=== PATIENT | female | born 1990 | race Caucasian/White ===

== ENCOUNTER → 2020-07-25 13:28 | Outpatient (CLI) | payer OTHER, SELFPAY ==
[2020-07-25 15:09] LABS: Benzodiazepines Screen,Urine Negative ng/ml (<200)
[2020-07-25 15:10] LABS: Amphetamine/Metha Screen,Urine Negative ng/ml (<1000)
[2020-07-25 15:11] LABS: Barbiturates Screen,Urine Negative ng/ml (<200); Cannabinoid Screen,Urine Negative ng/ml (<50)
[2020-07-25 15:12] LABS: Cocaine Screen,Urine Negative ng/ml (<300); Methadone Screen,Urine Negative ng/ml (<300)
[2020-07-25 15:13] LABS: Opiate Screen,Urine Negative ng/ml (<300)
[2020-07-25 15:14] LABS: Phencyclidine Screen,Urine Negative ng/ml (<25)
== END ==
PROVIDERS: Visit Provider Physician Assistant Medical
DX: F11.20 Opioid dependence, uncomplicated (principal)
CPT/HCPCS: 80305

== ENCOUNTER → 2020-08-02 11:30 | Outpatient (CLI) | payer OTHER, SELFPAY ==
[2020-08-02 14:34] LABS: Amphetamine/Metha Screen,Urine Negative ng/ml (<1000); Barbiturates Screen,Urine Negative ng/ml (<200)
[2020-08-02 14:35] LABS: Benzodiazepines Screen,Urine Negative ng/ml (<200)
[2020-08-02 14:36] LABS: Cannabinoid Screen,Urine Negative ng/ml (<50); Cocaine Screen,Urine Negative ng/ml (<300)
[2020-08-02 14:37] LABS: Methadone Screen,Urine Negative ng/ml (<300); Opiate Screen,Urine Negative ng/ml (<300)
[2020-08-02 14:38] LABS: Phencyclidine Screen,Urine Negative ng/ml (<25)
== END ==
PROVIDERS: Visit Provider Physician Assistant Medical
DX: F11.20 Opioid dependence, uncomplicated (principal)
CPT/HCPCS: 80305

== ENCOUNTER → 2020-08-10 09:58 | Outpatient (CLI) | payer OTHER, SELFPAY ==
[2020-08-10 11:31] LABS: Amphetamine/Metha Screen,Urine Negative ng/ml (<1000)
[2020-08-10 11:32] LABS: Barbiturates Screen,Urine Negative ng/ml (<200)
[2020-08-10 11:33] LABS: Benzodiazepines Screen,Urine Negative ng/ml (<200)
[2020-08-10 11:35] LABS: Cannabinoid Screen,Urine Negative ng/ml (<50); Cocaine Screen,Urine Negative ng/ml (<300)
[2020-08-10 11:36] LABS: Methadone Screen,Urine Negative ng/ml (<300)
[2020-08-10 11:37] LABS: Opiate Screen,Urine Negative ng/ml (<300)
[2020-08-10 11:48] LABS: Phencyclidine Screen,Urine Negative ng/ml (<25)
== END ==
PROVIDERS: Visit Provider Physician Assistant Medical
DX: F11.20 Opioid dependence, uncomplicated (principal)
CPT/HCPCS: 80305

== ENCOUNTER → 2020-08-18 11:24 | Outpatient (CLI) | payer OTHER, SELFPAY ==
[2020-08-18 12:10] LABS: Amphetamine/Metha Screen,Urine Negative ng/ml (<1000); Benzodiazepines Screen,Urine Negative ng/ml (<200)
[2020-08-18 12:11] LABS: Barbiturates Screen,Urine Negative ng/ml (<200)
[2020-08-18 12:12] LABS: Cannabinoid Screen,Urine Negative ng/ml (<50); Cocaine Screen,Urine Negative ng/ml (<300)
[2020-08-18 12:13] LABS: Methadone Screen,Urine Negative ng/ml (<300)
[2020-08-18 12:14] LABS: Opiate Screen,Urine Negative ng/ml (<300); Phencyclidine Screen,Urine Negative ng/ml (<25)
== END ==
PROVIDERS: Visit Provider Physician Assistant Medical
DX: F11.20 Opioid dependence, uncomplicated (principal)
CPT/HCPCS: 80305

== ENCOUNTER → 2020-08-24 17:28 | Outpatient (CLI) | payer OTHER, SELFPAY ==
[2020-08-24 18:03] LABS: Barbiturates Screen,Urine Negative ng/ml (<200)
[2020-08-24 18:04] LABS: Amphetamine/Metha Screen,Urine Negative ng/ml (<1000); Benzodiazepines Screen,Urine Negative ng/ml (<200)
[2020-08-24 18:05] LABS: Cannabinoid Screen,Urine Negative ng/ml (<50); Cocaine Screen,Urine Negative ng/ml (<300)
[2020-08-24 18:06] LABS: Methadone Screen,Urine Negative ng/ml (<300)
[2020-08-24 18:07] LABS: Opiate Screen,Urine Negative ng/ml (<300); Phencyclidine Screen,Urine Negative ng/ml (<25)
== END ==
PROVIDERS: Visit Provider Physician Assistant Medical
DX: F11.20 Opioid dependence, uncomplicated (principal)
CPT/HCPCS: 80305

== ENCOUNTER → 2020-09-08 12:26 | Outpatient (CLI) | payer OTHER, SELFPAY ==
[2020-09-08 14:57] LABS: Amphetamine/Metha Screen,Urine Negative ng/ml (<1000)
[2020-09-08 14:58] LABS: Barbiturates Screen,Urine Negative ng/ml (<200)
[2020-09-08 14:59] LABS: Benzodiazepines Screen,Urine Negative ng/ml (<200)
[2020-09-08 15:00] LABS: Cannabinoid Screen,Urine Negative ng/ml (<50); Cocaine Screen,Urine Negative ng/ml (<300)
[2020-09-08 15:01] LABS: Methadone Screen,Urine Negative ng/ml (<300)
[2020-09-08 15:02] LABS: Opiate Screen,Urine Negative ng/ml (<300)
[2020-09-08 15:03] LABS: Phencyclidine Screen,Urine Negative ng/ml (<25)
== END ==
PROVIDERS: Visit Provider Physician Assistant Medical
DX: F11.20 Opioid dependence, uncomplicated (principal)
CPT/HCPCS: 80305

== ENCOUNTER → 2020-09-18 11:28 | Outpatient (CLI) | payer OTHER, SELFPAY ==
[2020-09-18 12:50] LABS: Barbiturates Screen,Urine Negative ng/ml (<200); Benzodiazepines Screen,Urine Negative ng/ml (<200)
[2020-09-18 12:51] LABS: Amphetamine/Metha Screen,Urine Negative ng/ml (<1000)
[2020-09-18 12:52] LABS: Methadone Screen,Urine Negative ng/ml (<300)
[2020-09-18 12:53] LABS: Cannabinoid Screen,Urine Negative ng/ml (<50); Opiate Screen,Urine Negative ng/ml (<300)
[2020-09-18 12:54] LABS: Phencyclidine Screen,Urine Negative ng/ml (<25)
[2020-09-18 13:03] LABS: Cocaine Screen,Urine Negative ng/ml (<300)
== END ==
PROVIDERS: Visit Provider Physician Assistant Medical
DX: F11.20 Opioid dependence, uncomplicated (principal)
CPT/HCPCS: 80305

== ENCOUNTER → 2020-09-27 11:02 | Outpatient (CLI) | payer OTHER, SELFPAY ==
[2020-09-27 13:32] LABS: Amphetamine/Metha Screen,Urine Negative ng/ml (<1000)
[2020-09-27 13:33] LABS: Barbiturates Screen,Urine Negative ng/ml (<200)
[2020-09-27 13:34] LABS: Benzodiazepines Screen,Urine Negative ng/ml (<200); Cannabinoid Screen,Urine Negative ng/ml (<50)
[2020-09-27 13:35] LABS: Cocaine Screen,Urine Negative ng/ml (<300)
[2020-09-27 13:36] LABS: Methadone Screen,Urine Negative ng/ml (<300); Opiate Screen,Urine Negative ng/ml (<300)
[2020-09-27 13:37] LABS: Phencyclidine Screen,Urine Negative ng/ml (<25)
[2020-10-02 19:05] LABS: Opiates Negative (Cutoff=100)
== END ==
PROVIDERS: Visit Provider Physician Assistant Medical
DX: F11.20 Opioid dependence, uncomplicated (principal)
CPT/HCPCS: 80305; 80361; 80365; G0480

== ENCOUNTER → 2020-10-13 16:11 | Outpatient (CLI) | payer OTHER, SELFPAY ==
[2020-10-13 17:05] LABS: Opiate Screen,Urine Negative ng/ml (<300)
[2020-10-13 17:06] LABS: Phencyclidine Screen,Urine Negative ng/ml (<25)
[2020-10-13 17:08] LABS: Amphetamine/Metha Screen,Urine Negative ng/ml (<1000); Barbiturates Screen,Urine Negative ng/ml (<200)
[2020-10-13 17:09] LABS: Benzodiazepines Screen,Urine Negative ng/ml (<200)
[2020-10-13 17:11] LABS: Cannabinoid Screen,Urine Negative ng/ml (<50)
[2020-10-13 17:12] LABS: Cocaine Screen,Urine Negative ng/ml (<300); Methadone Screen,Urine Negative ng/ml (<300)
== END ==
PROVIDERS: Visit Provider Physician Assistant Medical
DX: F11.20 Opioid dependence, uncomplicated (principal)
CPT/HCPCS: 80305

== ENCOUNTER → 2020-10-25 14:39 | Outpatient (CLI) | payer OTHER, SELFPAY ==
[2020-10-25 15:19] LABS: Barbiturates Screen,Urine Negative ng/ml (<200); Benzodiazepines Screen,Urine Negative ng/ml (<200)
[2020-10-25 15:20] LABS: Amphetamine/Metha Screen,Urine Negative ng/ml (<1000)
[2020-10-25 15:21] LABS: Cannabinoid Screen,Urine Negative ng/ml (<50); Cocaine Screen,Urine Negative ng/ml (<300)
[2020-10-25 15:22] LABS: Methadone Screen,Urine Negative ng/ml (<300)
[2020-10-25 15:23] LABS: Opiate Screen,Urine Negative ng/ml (<300); Phencyclidine Screen,Urine Negative ng/ml (<25)
== END ==
PROVIDERS: Visit Provider Physician Assistant Medical
DX: F11.20 Opioid dependence, uncomplicated (principal)
CPT/HCPCS: 80305

== ENCOUNTER → 2020-11-07 17:28 | Outpatient (CLI) | payer OTHER, SELFPAY ==
[2020-11-07 18:36] LABS: Barbiturates Screen,Urine Negative ng/ml (<200)
[2020-11-07 18:37] LABS: Amphetamine/Metha Screen,Urine Negative ng/ml (<1000); Benzodiazepines Screen,Urine Negative ng/ml (<200)
[2020-11-07 18:38] LABS: Methadone Screen,Urine Negative ng/ml (<300)
[2020-11-07 18:39] LABS: Cannabinoid Screen,Urine Negative ng/ml (<50); Cocaine Screen,Urine Negative ng/ml (<300)
[2020-11-07 18:40] LABS: Opiate Screen,Urine Negative ng/ml (<300)
[2020-11-07 18:41] LABS: Phencyclidine Screen,Urine Negative ng/ml (<25)
== END ==
PROVIDERS: Visit Provider Physician Assistant Medical
DX: F11.20 Opioid dependence, uncomplicated (principal)
CPT/HCPCS: 80305

== ENCOUNTER → 2020-12-09 12:29 | Outpatient (CLI) | payer OTHER, SELFPAY ==
[2020-12-09 13:37] LABS: Barbiturates Screen,Urine Negative ng/ml (<200)
[2020-12-09 13:38] LABS: Amphetamine/Metha Screen,Urine Negative ng/ml (<1000); Benzodiazepines Screen,Urine Negative ng/ml (<200)
[2020-12-09 13:39] LABS: Cannabinoid Screen,Urine Positive ng/ml (<50); Cocaine Screen,Urine Negative ng/ml (<300)
[2020-12-09 13:40] LABS: Methadone Screen,Urine Negative ng/ml (<300)
[2020-12-09 13:41] LABS: Opiate Screen,Urine Negative ng/ml (<300); Phencyclidine Screen,Urine Negative ng/ml (<25)
== END ==
PROVIDERS: Visit Provider Physician Assistant Medical
DX: F11.20 Opioid dependence, uncomplicated (principal)
CPT/HCPCS: 80305

== ENCOUNTER → 2021-01-03 12:16 | Outpatient (CLI) | payer MEDICAID, SELFPAY ==
[2021-01-03 18:35] LABS: Amphetamine/Metha Screen,Urine Negative ng/ml (<1000)
[2021-01-03 18:36] LABS: Barbiturates Screen,Urine Negative ng/ml (<200); Benzodiazepines Screen,Urine Negative ng/ml (<200)
[2021-01-03 18:37] LABS: Cannabinoid Screen,Urine Negative ng/ml (<50)
[2021-01-03 18:38] LABS: Cocaine Screen,Urine Negative ng/ml (<300); Methadone Screen,Urine Negative ng/ml (<300)
[2021-01-03 18:39] LABS: Opiate Screen,Urine Negative ng/ml (<300)
[2021-01-03 18:40] LABS: Phencyclidine Screen,Urine Negative ng/ml (<25)
== END ==
PROVIDERS: Visit Provider Physician Assistant Medical
DX: F11.20 Opioid dependence, uncomplicated (principal)
CPT/HCPCS: 80305

== ENCOUNTER → 2021-01-20 11:40 | Outpatient (CLI) | payer MEDICAID, SELFPAY ==
[2021-01-20 12:53] LABS: Barbiturates Screen,Urine Negative ng/ml (<200); Benzodiazepines Screen,Urine Negative ng/ml (<200)
[2021-01-20 12:54] LABS: Amphetamine/Metha Screen,Urine Negative ng/ml (<1000); Cannabinoid Screen,Urine Negative ng/ml (<50)
[2021-01-20 12:55] LABS: Cocaine Screen,Urine Negative ng/ml (<300)
[2021-01-20 12:56] LABS: Methadone Screen,Urine Negative ng/ml (<300); Opiate Screen,Urine Negative ng/ml (<300)
[2021-01-20 12:57] LABS: Phencyclidine Screen,Urine Negative ng/ml (<25)
== END ==
PROVIDERS: Visit Provider Physician Assistant Medical
DX: F11.20 Opioid dependence, uncomplicated (principal)
CPT/HCPCS: 80305; 80348

== ENCOUNTER → 2021-02-05 11:12 | Outpatient (CLI) | payer MEDICAID, SELFPAY ==
[2021-02-05 11:50] LABS: Benzodiazepines Screen,Urine Negative ng/ml (<200)
[2021-02-05 11:51] LABS: Amphetamine/Metha Screen,Urine Negative ng/ml (<1000); Barbiturates Screen,Urine Negative ng/ml (<200)
[2021-02-05 11:52] LABS: Cannabinoid Screen,Urine Negative ng/ml (<50); Methadone Screen,Urine Negative ng/ml (<300)
[2021-02-05 11:53] LABS: Cocaine Screen,Urine Negative ng/ml (<300)
[2021-02-05 11:54] LABS: Opiate Screen,Urine Negative ng/ml (<300); Phencyclidine Screen,Urine Negative ng/ml (<25)
== END ==
PROVIDERS: Visit Provider Physician Assistant Medical
DX: F11.20 Opioid dependence, uncomplicated (principal)
CPT/HCPCS: 80305

== ENCOUNTER → 2021-02-28 16:13 | Outpatient (CLI) | payer MEDICAID, SELFPAY ==
[2021-02-28 19:26] LABS: Amphetamine/Metha Screen,Urine Negative ng/ml (<1000)
[2021-02-28 19:27] LABS: Barbiturates Screen,Urine Negative ng/ml (<200); Benzodiazepines Screen,Urine Negative ng/ml (<200)
[2021-02-28 19:28] LABS: Cannabinoid Screen,Urine Negative ng/ml (<50)
[2021-02-28 19:29] LABS: Cocaine Screen,Urine Negative ng/ml (<300); Methadone Screen,Urine Negative ng/ml (<300)
[2021-02-28 19:30] LABS: Opiate Screen,Urine Negative ng/ml (<300)
[2021-02-28 19:31] LABS: Phencyclidine Screen,Urine Negative ng/ml (<25)
== END ==
PROVIDERS: Visit Provider Physician Assistant Medical
DX: F11.20 Opioid dependence, uncomplicated (principal)
CPT/HCPCS: 80305

== ENCOUNTER → 2021-03-10 10:52 | Outpatient (CLI) | payer MEDICAID, SELFPAY ==
[2021-03-10 18:23] LABS: Amphetamine/Metha Screen,Urine Negative ng/ml (<1000); Barbiturates Screen,Urine Negative ng/ml (<200)
[2021-03-10 18:24] LABS: Benzodiazepines Screen,Urine Negative ng/ml (<200)
[2021-03-10 18:25] LABS: Cannabinoid Screen,Urine Negative ng/ml (<50); Cocaine Screen,Urine Negative ng/ml (<300)
[2021-03-10 18:26] LABS: Methadone Screen,Urine Negative ng/ml (<300)
[2021-03-10 18:27] LABS: Opiate Screen,Urine Negative ng/ml (<300); Phencyclidine Screen,Urine Negative ng/ml (<25)
== END ==
PROVIDERS: PCP Physician Assistant Medical; Visit Provider Physician Assistant Medical
DX: F11.20 Opioid dependence, uncomplicated (principal)
CPT/HCPCS: 80305

== ENCOUNTER → 2021-03-24 11:51 | Outpatient (CLI) | payer MEDICAID, SELFPAY ==
[2021-04-09 09:10] LABS: Opiates Negative (Cutoff=100)
== END ==
PROVIDERS: PCP Family Medicine; Visit Provider Family Medicine
DX: F11.20 Opioid dependence, uncomplicated (principal)
CPT/HCPCS: 80361; 80365; G0480

== ENCOUNTER → 2021-03-27 16:26 | Outpatient (CLI) | payer MEDICAID, SELFPAY ==
[2021-03-27 19:21] LABS: Amphetamine/Metha Screen,Urine Negative ng/ml (<1000)
[2021-03-27 19:22] LABS: Barbiturates Screen,Urine Negative ng/ml (<200); Benzodiazepines Screen,Urine Negative ng/ml (<200)
[2021-03-27 19:23] LABS: Cannabinoid Screen,Urine Negative ng/ml (<50)
[2021-03-27 19:24] LABS: Cocaine Screen,Urine Negative ng/ml (<300); Methadone Screen,Urine Negative ng/ml (<300)
[2021-03-27 19:25] LABS: Opiate Screen,Urine Negative ng/ml (<300); Phencyclidine Screen,Urine Negative ng/ml (<25)
== END ==
PROVIDERS: PCP Pediatrics; Visit Provider Physician Assistant Medical
DX: F11.20 Opioid dependence, uncomplicated (principal)
CPT/HCPCS: 80305

== ENCOUNTER → 2021-04-07 11:01 | Outpatient (CLI) | payer MEDICAID, SELFPAY ==
[2021-04-07 16:46] LABS: Amphetamine/Metha Screen,Urine Negative ng/ml (<1000)
[2021-04-07 16:47] LABS: Barbiturates Screen,Urine Negative ng/ml (<200)
[2021-04-07 16:48] LABS: Benzodiazepines Screen,Urine Negative ng/ml (<200); Cannabinoid Screen,Urine Negative ng/ml (<50)
[2021-04-07 16:49] LABS: Cocaine Screen,Urine Negative ng/ml (<300); Methadone Screen,Urine Negative ng/ml (<300)
[2021-04-07 16:50] LABS: Opiate Screen,Urine Negative ng/ml (<300)
[2021-04-07 16:51] LABS: Phencyclidine Screen,Urine Negative ng/ml (<25)
== END ==
PROVIDERS: Visit Provider Physician Assistant Medical
DX: F11.20 Opioid dependence, uncomplicated (principal)
CPT/HCPCS: 80305

== ENCOUNTER → 2021-04-16 13:37 | Outpatient (CLI) | payer MEDICAID, SELFPAY ==
[2021-04-16 17:50] LABS: Amphetamine/Metha Screen,Urine Negative ng/ml (<1000)
[2021-04-16 17:51] LABS: Barbiturates Screen,Urine Negative ng/ml (<200); Benzodiazepines Screen,Urine Negative ng/ml (<200)
[2021-04-16 17:52] LABS: Cannabinoid Screen,Urine Negative ng/ml (<50); Cocaine Screen,Urine Negative ng/ml (<300)
[2021-04-16 17:53] LABS: Methadone Screen,Urine Negative ng/ml (<300)
[2021-04-16 17:54] LABS: Opiate Screen,Urine Negative ng/ml (<300); Phencyclidine Screen,Urine Negative ng/ml (<25)
== END ==
PROVIDERS: Visit Provider Physician Assistant Medical
DX: F11.20 Opioid dependence, uncomplicated (principal)
CPT/HCPCS: 80305

== ENCOUNTER → 2021-04-23 15:46 | Outpatient (CLI) | payer MEDICAID, SELFPAY ==
[2021-04-23 18:34] LABS: Barbiturates Screen,Urine Negative ng/ml (<200); Benzodiazepines Screen,Urine Negative ng/ml (<200)
[2021-04-23 18:35] LABS: Amphetamine/Metha Screen,Urine Negative ng/ml (<1000)
[2021-04-23 18:36] LABS: Cannabinoid Screen,Urine Negative ng/ml (<50); Methadone Screen,Urine Negative ng/ml (<300)
[2021-04-23 18:37] LABS: Cocaine Screen,Urine Negative ng/ml (<300)
[2021-04-23 18:38] LABS: Opiate Screen,Urine Negative ng/ml (<300); Phencyclidine Screen,Urine Negative ng/ml (<25)
== END ==
PROVIDERS: Visit Provider Physician Assistant Medical
DX: F11.20 Opioid dependence, uncomplicated (principal)
CPT/HCPCS: 80305

== ENCOUNTER → 2021-05-07 12:39 | Outpatient (CLI) | payer MEDICAID, SELFPAY ==
[2021-05-07 17:16] LABS: Amphetamine/Metha Screen,Urine Negative ng/ml (<1000); Benzodiazepines Screen,Urine Negative ng/ml (<200)
[2021-05-07 17:17] LABS: Barbiturates Screen,Urine Negative ng/ml (<200); Methadone Screen,Urine Negative ng/ml (<300)
[2021-05-07 17:18] LABS: Cannabinoid Screen,Urine Negative ng/ml (<50)
[2021-05-07 17:19] LABS: Cocaine Screen,Urine Negative ng/ml (<300)
[2021-05-07 17:20] LABS: Opiate Screen,Urine Negative ng/ml (<300)
[2021-05-07 17:21] LABS: Phencyclidine Screen,Urine Negative ng/ml (<25)
[2021-06-19 18:38] LABS: Buprenorphine POSITIVE
[2021-06-19 18:39] LABS: Norbuprenorphine POSITIVE
[2021-06-19 18:40] LABS: Buprenorphine POSITIVE
== END ==
PROVIDERS: Visit Provider Physician Assistant Medical
DX: F11.20 Opioid dependence, uncomplicated (principal)
CPT/HCPCS: 80305; 80348

== ENCOUNTER → 2021-05-14 16:19 | Outpatient (CLI) | payer MEDICAID, SELFPAY ==
[2021-05-14 20:44] LABS: Amphetamine/Metha Screen,Urine Negative ng/ml (<1000); Barbiturates Screen,Urine Negative ng/ml (<200)
[2021-05-14 20:45] LABS: Benzodiazepines Screen,Urine Negative ng/ml (<200)
[2021-05-14 20:46] LABS: Cannabinoid Screen,Urine Negative ng/ml (<50); Cocaine Screen,Urine Negative ng/ml (<300)
[2021-05-14 20:47] LABS: Methadone Screen,Urine Negative ng/ml (<300); Opiate Screen,Urine Negative ng/ml (<300)
[2021-05-14 20:48] LABS: Phencyclidine Screen,Urine Negative ng/ml (<25)
[2021-06-18 08:55] LABS: Buprenorphine Positive; Norbuprenorphine Positive
== END ==
PROVIDERS: Nurse Practitioner; Visit Provider Physician Assistant Medical
DX: F11.20 Opioid dependence, uncomplicated (principal)
CPT/HCPCS: 36415; 80305; 80348

== ENCOUNTER → 2021-05-28 08:24 | Outpatient (CLI) | payer MEDICAID, SELFPAY ==
[2021-05-28 10:04] LABS: Benzodiazepines Screen,Urine Negative ng/ml (<200)
[2021-05-28 10:05] LABS: Amphetamine/Metha Screen,Urine Negative ng/ml (<1000); Barbiturates Screen,Urine Negative ng/ml (<200)
[2021-05-28 10:06] LABS: Cannabinoid Screen,Urine Negative ng/ml (<50); Methadone Screen,Urine Negative ng/ml (<300)
[2021-05-28 10:07] LABS: Cocaine Screen,Urine Negative ng/ml (<300)
[2021-05-28 10:08] LABS: Opiate Screen,Urine Negative ng/ml (<300); Phencyclidine Screen,Urine Negative ng/ml (<25)
[2021-06-19 18:44] LABS: Buprenorphine POSITIVE
[2021-06-19 18:45] LABS: Norbuprenorphine POSITIVE
== END ==
PROVIDERS: Visit Provider Nurse Practitioner
DX: F11.20 Opioid dependence, uncomplicated (principal)
CPT/HCPCS: 80305; 80348

== ENCOUNTER → 2021-06-04 08:35 | Outpatient (CLI) | payer MEDICAID, SELFPAY ==
[2021-06-04 09:48] LABS: Basophils # 0.1 K/mm3 (0-0.2); Basophils % 2.5 % (0.1-2.0); Eosinophils # 0.1 K/mm3 (0.0-0.4); Eosinophils % 2.5 % (0.1-12.0); Hematocrit 37.7 % (37.0-47.0); Hemoglobin 12.8 g/dL (12.2-16.2); Lymphocytes # 1.4 K/mm3 (0.7-4.5); Lymphocytes % 38.6 % (10-50); Mean Corpuscular HGB Conc 33.9 g/dL (31.8-35.4); Mean Corpuscular Volume 91.4 fl (81-99); Mean Platelet Volume 8.8 fl (7.4-10.4); Monocytes # 0.3 K/mm3 (0.1-1.0); Monocytes % 7.4 % (1.7-9.3); Neutrophils # 1.8 K/mm3 (1.8-7.8); Platelet Count 200 K/mm3 (142-424); Red Blood Count 4.13 M/mm3 (4.20-5.40); Red Cell Distribution Width 13.1 % (11.5-17.5); White Blood Count 3.7 K/mm3 (4.8-10.8)
[2021-06-04 11:59] LABS: Chloride 106 mmol/L (98-107); Sodium 139 mmol/L (136-145)
[2021-06-04 12:00] LABS: Potassium 3.7 mmoL/L (3.5-5.1)
[2021-06-04 12:02] LABS: Alanine Aminotransferase 31 U/L (12-78); Alkaline Phosphatase 74 U/L (38-126); Anion Gap 8.7 mEq/L (5-15); Aspartate Amino Transferase 47 U/L (14-36); Bilirubin,Total 0.6 mg/dl (0.2-1.3); Blood Urea Nitrogen 10 mg/dl (7-17); Carbon Dioxide 28 mmol/L (22.0-30.0); Estimated Glomerular Filt Rate 98 ml/min (>60); GFR (African American) 118 ML/MIN (>60)
[2021-06-04 12:03] LABS: Albumin Level 3.8 g/dl (3.5-5.0); Albumin/Globulin Ratio 1.4 (1.1-1.8); Calcium 8.2 mg/dl (8.4-10.2); Globulin 2.7 g/dL (1.3-3.2); Glucose 77 mg/dl (74-100); Total Protein,Serum 6.5 g/dl (6.3-8.2)
[2021-06-04 12:34] LABS: Thyroid Stimulating Hormone 1.08 uIU/mL (0.465-4.68)
[2021-06-05 07:15] LABS: HIV Screen 4th Generation wRfx Non Reactive (Non Reactive); Hepatitis B Core Antibody IgM Negative (Negative); Hepatitis B Surface Antigen Negative (Negative)
[2021-06-05 20:09] LABS: Neisseria gonorrhoeae, NAA Negative (Negative)
== END ==
PROVIDERS: Visit Provider Nurse Practitioner
DX: F11.20 Opioid dependence, uncomplicated (principal); F41.9 Anxiety disorder, unspecified; F32.A Depression, unspecified; Z11.4 Encounter for screening for human immunodeficiency virus [HIV]
CPT/HCPCS: 36415; 80053; 84443; 85025; 86703; 86704; 87340; 87491; 87591; G0432

== ENCOUNTER → 2021-06-18 11:59 | Outpatient (CLI) | payer MEDICAID, SELFPAY ==
[2021-06-18 13:28] LABS: Barbiturates Screen,Urine Negative ng/ml (<200)
[2021-06-18 13:29] LABS: Benzodiazepines Screen,Urine Negative ng/ml (<200)
[2021-06-18 13:30] LABS: Amphetamine/Metha Screen,Urine Negative ng/ml (<1000); Cocaine Screen,Urine Negative ng/ml (<300)
[2021-06-18 13:31] LABS: Cannabinoid Screen,Urine Negative ng/ml (<50); Methadone Screen,Urine Negative ng/ml (<300)
[2021-06-18 13:34] LABS: Phencyclidine Screen,Urine Negative ng/ml (<25)
[2021-06-18 13:35] LABS: Opiate Screen,Urine Negative ng/ml (<300)
[2021-07-05 16:15] LABS: Buprenorphine Positive (.)
== END ==
PROVIDERS: PCP Pediatrics; Visit Provider Nurse Practitioner
DX: F11.20 Opioid dependence, uncomplicated (principal)
CPT/HCPCS: 80305; 80348

== ENCOUNTER → 2021-07-02 09:14 | Outpatient (CLI) | payer MEDICAID, SELFPAY ==
[2021-07-02 09:47] LABS: Amphetamine/Metha Screen,Urine Negative ng/ml (<1000); Barbiturates Screen,Urine Negative ng/ml (<200)
[2021-07-02 09:48] LABS: Benzodiazepines Screen,Urine Negative ng/ml (<200); Cannabinoid Screen,Urine Negative ng/ml (<50)
[2021-07-02 09:49] LABS: Cocaine Screen,Urine Negative ng/ml (<300)
[2021-07-02 09:50] LABS: Methadone Screen,Urine Negative ng/ml (<300); Opiate Screen,Urine Negative ng/ml (<300)
[2021-07-02 09:51] LABS: Phencyclidine Screen,Urine Negative ng/ml (<25)
[2021-07-22 23:07] LABS: Buprenorphine Positive (.)
== END ==
PROVIDERS: Visit Provider Nurse Practitioner
DX: F11.20 Opioid dependence, uncomplicated (principal)
CPT/HCPCS: 80305; 80348

== ENCOUNTER → 2021-07-16 11:29 | Outpatient (CLI) | payer MEDICAID, SELFPAY ==
[2021-07-16 12:19] LABS: Benzodiazepines Screen,Urine Negative ng/ml (<200)
[2021-07-16 12:20] LABS: Amphetamine/Metha Screen,Urine Negative ng/ml (<1000)
[2021-07-16 12:21] LABS: Cannabinoid Screen,Urine Negative ng/ml (<50); Methadone Screen,Urine Negative ng/ml (<300)
[2021-07-16 12:22] LABS: Cocaine Screen,Urine Negative ng/ml (<300); Opiate Screen,Urine Negative ng/ml (<300)
[2021-07-16 12:26] LABS: Phencyclidine Screen,Urine Negative ng/ml (<25)
[2021-07-16 14:51] LABS: Barbiturates Screen,Urine Negative ng/ml (<200)
[2021-08-15 08:19] LABS: Buprenorphine Positive (.)
== END ==
PROVIDERS: PCP Family Medicine; Visit Provider Nurse Practitioner
DX: F11.20 Opioid dependence, uncomplicated (principal)
CPT/HCPCS: 80305; 80348